=== PATIENT | male | born 1980 | race African-American/Black ===

== ENCOUNTER 2022-07-06 05:54 | Emergency (ER) | payer OTHER ==
[2022-07-06] MEDS ORDERED: SODIUM CHLORIDE 0.9% 1,000 ML IV STA ×3 (06:18→07:25)
[2022-07-06 06:38] LABS: VBG HCO3 8.7 mmol/L (23-28); VBG PCO2 32.6 mmHg (41-51); VBG PH 7.032
[2022-07-06 06:46] LABS: ALBUMIN 4.5 g/dL (3.2-5.5); ALKALINE PHOSPHATASE 54 IU/L (42-121); ALT ALANINE AMINOTRANSFERASE 33 IU/L (10-60); AST ASPARTATE AMINOTRANSFERASE 21 IU/L (10-42); BILIRUBIN,TOTAL 1.6 mg/dL (0.2-1.0); BUN - BLOOD UREA NITROGEN 25 mg/dL (6-20); CALCIUM 9.4 mg/dL (8.5-10.3); CHLORIDE 99 mmol/L (101-111); CREATININE 1.7 mg/dL (0.6-1.2); GFR - MDRD 55 (>89); LIPASE 37 U/L (22-51); MAGNESIUM 2.4 mg/dL (1.7-2.8); POTASSIUM 5.8 mmol/L (3.5-5.0); SODIUM 135 mmol/L (135-145); TOTAL PROTEIN 8.8 g/dL (6.7-8.2)
[2022-07-06 06:48] LABS: CARBON DIOXIDE - CO2 9 mmol/L (21-32); GLUCOSE 569 mg/dL (70-100)
[2022-07-06 06:49] LABS: BASOPHILS % (AUTO) 0.2 %; EOSINOPHILS # (AUTO) 0.2 10^3/uL (0.0-0.7); EOSINOPHILS % (AUTO) 2.4 %; HCT - HEMATOCRIT 53.9 % (42.0-52.0); LYMPHOCYTES # (AUTO) 2.1 10^3/uL (1.5-3.5); LYMPHOCYTES % (AUTO) 26.2 %; MEAN CORPUSCULAR HEMOGLOBIN 29.2 pg (27.0-31.0); MEAN CORPUSCULAR HGB CONC 31.5 g/dL (32.0-36.0); MEAN CORPUSCULAR VOLUME 92.5 fL (80.0-94.0); MEAN PLATELET VOLUME 10.6 fL (7.4-11.4); MONOCYTES # (AUTO) 0.6 10^3/uL (0.0-1.0); MONOCYTES % (AUTO) 7.7 %; NEUTROPHILS % (AUTO) 62.8 %; PLT - PLATELET COUNT 335 10^3/uL (130-450); RED BLOOD COUNT 5.83 10^6/uL (4.70-6.10); RED CELL DISTRIBUTION WIDTH 13.2 % (12.0-15.0)
[2022-07-06] MEDS ORDERED: INSULIN REGULAR HUMAN 100 UNIT in SODIUM CHLORIDE 0.9% 100ML 99 ML IV STA ×2 (06:51→15:39)
[2022-07-06 06:56] LABS: KETONES, SERUM (ACETEST) LARGE (NEGATIVE)
--- NOTE | 2022-07-06 07:25 | ED Physician Documentation ---
PD HPI ABD PAIN - Stated complaint Stated Complaint: MALE GI/LETHARGIC - Chief complaint Chief Complaint: Abd Pain - History obtained from History obtained from: Patient, Family - Additional information Additional information: 41-year-old gentleman with history of diabetes and hypertension. Had DKA once about 2 years ago, that was his index visit for the diagnosis of diabetes and he was hospitalized at [facility]. Starting about 3 days ago has developed some mild diffuse abdominal pain and absent bowel movements without decreased flatus. His blood sugars have been okay, generally in the mid 100s. He takes Lantus 32 units once a day, no sliding scale. Review of Systems Ten Systems: 10 systems reviewed and negative Constitutional: reports: Fatigue. denies: Fever, Chills, Myalgias GI: reports: Abdominal Pain, Nausea, Constipation. denies: Vomiting, Diarrhea, Hematemesis, Bloody / black stool PD PAST MEDICAL HISTORY - Past Medical History Past Medical History: Yes Cardiovascular: Hypertension Endocrine/Autoimmune: Type 2 diabetes - Past Surgical History Past Surgical History: No - Present Medications Home Medications: Ambulatory Orders Medication Instructions Recorded Confirmed Amlodipine Besylate [Norvasc] 10 mg PO DAILY 07/06/22 07/06/22 Aspirin EC [Ecotrin] 81 mg PO DAILY 07/06/22 07/06/22 Atorvastatin Calcium 40 mg PO DAILY 07/06/22 07/06/22 Ibuprofen [Motrin] 600 mg PO Q6H PRN 07/06/22 07/06/22 Lisinopril [Zestril] 20 mg PO DAILY 07/06/22 07/06/22 [place] 3,6/Dha/Rosamaria/Schizo/Mort 100 mg PO DAILY 07/06/22 07/06/22 [Enfamil Dha-Rosamaria 110 mg/ml Drop] methocarbamoL [Methocarbamol] 500 mg PO Q6HR PRN 07/06/22 07/06/22 - Allergies Allergies/Adverse Reactions: Allergies Allergy/AdvReac Type Severity Reaction Status Date / Time No Known Drug Allergies Allergy Verified 07/06/22 06:05 - Living Situation Living Situation: reports: With spouse/s.o. - Social History Does the pt smoke?: No Smoking Status: Never smoker Does the pt drink ETOH?: No Does the pt have substance abuse?: No - Immunizations Immunizations are current?: Yes - POLST Patient has POLST: No PD ED PE NORMAL - Vitals Vital signs reviewed: Yes (Tachycardic and tachypneic) - General General: Alert and oriented X 3, Other (Appears weak) - HEENT HEENT: Other (Dry mucous membranes) - Neck Neck: Supple, no meningeal sign, No bony TTP - Cardiac Cardiac: Other (Tachycardic but regular without murmur) - Respiratory Respiratory: No respiratory distress, Clear bilaterally - Abdomen Abdomen: Other (Mild diffuse tenderness without surgical signs, slightly hypoactive bowel sounds) - Back Back: No CVA TTP, No spinal TTP - Derm Derm: Normal color, Warm and dry - Extremities Extremities: No edema, No calf tenderness / cord - Neuro Neuro: Alert and oriented X 3, Normal speech Results - Vitals Vitals: Vital Signs - 24 hr 07/06/22 07/06/22 07/06/22 06:06 06:52 07:17 Temperature 36.6 C Heart Rate 133 H 129 H 131 H Respiratory 26 H 26 H 18 Rate Blood Pressure 146/105 H 148/103 H 142/92 H O2 Saturation 100 100 100 07/06/22 07/06/22 07/06/22 08:02 09:00 10:00 Temperature 36.7 C Heart Rate 127 H 140 H 136 H Respiratory 21 19 22 Rate Blood Pressure 120/99 H 119/48 L 136/84 H O2 Saturation 100 100 97 07/06/22 07/06/22 07/06/22 11:00 11:30 12:00 Temperature Heart Rate 139 H 131 H 139 H Respiratory 20 21 18 Rate Blood Pressure 131/80 H 131/80 H 121/76 O2 Saturation 100 100 100 07/06/22 07/06/22 07/06/22 13:00 13:48 14:27 Temperature Heart Rate 136 H 124 H 120 H Respiratory 22 22 22 Rate Blood Pressure 119/74 129/85 H O2 Saturation 100 100 99 07/06/22 07/06/22 07/06/22 15:00 15:30 16:00 Temperature Heart Rate 119 H 122 H 138 H Respiratory 20 21 17 Rate Blood Pressure 142/88 H 134/88 H O2 Saturation 100 100 100 07/06/22 07/06/22 07/06/22 17:00 18:00 18:30 Temperature 37 C Heart Rate 113 H 112 H 120 H Respiratory 17 19 20 Rate Blood Pressure 134/84 H 116/72 124/81 H O2 Saturation 100 100 100 Oxygen O2 Source Room air - EKG (time done) 0633 Rate: Rate (enter#) (126) Rhythm: NSR, LAE [place]: Normal Intervals: Normal AL QRS: Normal Ischemia: Non specific changes. No: ST elevation c/w ischemia, ST depression - Labs Labs: Laboratory Tests 07/06/22 07/06/22 07/06/22 06:22 06:22 06:22 WBC RBC Hgb Hct MCV MCH MCHC RDW Plt Count MPV Neut # (Auto) Lymph # (Auto) [place] # (Auto) Eos # (Auto) Baso # (Auto) Absolute Nucleated RBC Nucleated RBC % VBG pH 7.032 VBG pCO2 32.6 L VBG pO2 45.0 VBG HCO3 8.7 L VBG Total CO2 10.0 L VBG O2 Saturation 60.0 VBG Base Excess -22.0 L Sodium 135 Potassium 5.8 H Chloride 99 L Carbon Dioxide 9 L* Anion Gap 27.0 H BUN 25 H Creatinine 1.7 H Estimated GFR (MDRD) 55 L Glucose 569 H* POC Whole Bld Glucose Lactic Acid 3.8 H* Calcium 9.4 Phosphorus Magnesium 2.4 Total Bilirubin 1.6 H AST 21 ALT 33 Alkaline Phosphatase 54 Total Protein 8.8 H Albumin 4.5 Globulin 4.3 H Albumin/Globulin Ratio 1.0 Lipase 37 Urine Color Urine Clarity Urine pH Ur Specific [place] Urine Protein Urine Glucose (UA) Urine Ketones Urine Occult Blood Urine Nitrite Urine Bilirubin Urine Urobilinogen Ur Leukocyte Esterase Urine RBC Urine WBC Ur Squamous Epith Cells Urine Bacteria Urine Casts Ur Microscopic Review Urine Culture Comments Nasal Adenovirus (PCR) Nasal B. parapertussis DNA (PCR) Nasal Coronavir 229E PCR Nasal Coronavir HKU1 PCR Nasal Coronavir NL63 PCR Nasal Coronavir OC43 PCR Nasal Enterovir/Rhinovir PCR Nasal Influenza B PCR Nasal Influenza A PCR Nasal Parainfluen 1 PCR Nasal Parainfluen 2 PCR Nasal Parainfluen 3 PCR Nasal Parainfluen 4 PCR Nasal RSV (PCR) Nasal B.pertussis DNA PCR Nasal C.pneumoniae (PCR) Neymar Human Metapneumo PCR Nasal M.pneumoniae (PCR) Nasal SARS-CoV-2 (PCR) Serum Ketones LARGE H 07/06/22 07/06/22 07/06/22 06:30 06:42 07:10 WBC 8.0 RBC 5.83 Hgb 17.0 Hct 53.9 H MCV 92.5 MCH 29.2 MCHC 31.5 L RDW 13.2 Plt Count 335 MPV 10.6 Neut # (Auto) 5.0 Lymph # (Auto) 2.1 [place] # (Auto) 0.6 Eos # (Auto) 0.2 Baso # (Auto) 0.0 Absolute Nucleated RBC 0.00 Nucleated RBC % 0.0 VBG pH VBG pCO2 VBG pO2 VBG HCO3 VBG Total CO2 VBG O2 Saturation VBG Base Excess Sodium Potassium Chloride Carbon Dioxide Anion Gap BUN Creatinine Estimated GFR (MDRD) Glucose POC Whole Bld Glucose Lactic Acid Calcium Phosphorus Magnesium Total Bilirubin AST ALT Alkaline Phosphatase Total Protein Albumin Globulin Albumin/Globulin Ratio Lipase Urine Color LT. YELLOW Urine Clarity CLEAR Urine pH 6.0 Ur Specific [place] >=1.030 H Urine Protein 30 H Urine Glucose (UA) 500 H Urine Ketones >=80 H Urine Occult Blood SMALL H Urine Nitrite NEGATIVE Urine Bilirubin NEGATIVE Urine Urobilinogen 0.2 (NORMAL) Ur Leukocyte Esterase NEGATIVE Urine RBC 0-5 Urine WBC 0-3 Ur Squamous Epith Cells RARE Squamous Urine Bacteria Few Urine Casts 11-25Course Granular Ur Microscopic Review INDICATED Urine Culture Comments NOT INDICATED Nasal Adenovirus (PCR) NOT DETECTED Nasal B. parapertussis DNA (PCR) NOT DETECTED Nasal Coronavir 229E PCR NOT DETECTED Nasal Coronavir HKU1 PCR NOT DETECTED Nasal Coronavir NL63 PCR NOT DETECTED Nasal Coronavir OC43 PCR NOT DETECTED Nasal Enterovir/Rhinovir PCR NOT DETECTED Nasal Influenza B PCR NOT DETECTED Nasal Influenza A PCR NOT DETECTED Nasal Parainfluen 1 PCR NOT DETECTED Nasal Parainfluen 2 PCR NOT DETECTED Nasal Parainfluen 3 PCR NOT DETECTED Nasal Parainfluen 4 PCR NOT DETECTED Nasal RSV (PCR) NOT DETECTED Nasal B.pertussis DNA PCR NOT DETECTED Nasal C.pneumoniae (PCR) NOT DETECTED Neymar Human Metapneumo PCR NOT DETECTED Nasal M.pneumoniae (PCR) NOT DETECTED Nasal SARS-CoV-2 (PCR) DETECTED A Serum Ketones 07/06/22 07/06/22 07/06/22 08:35 08:35 09:50 WBC RBC Hgb Hct MCV MCH MCHC RDW Plt Count MPV Neut # (Auto) Lymph # (Auto) [place] # (Auto) Eos # (Auto) Baso # (Auto) Absolute Nucleated RBC Nucleated RBC % VBG pH 6.988 VBG pCO2 26.7 L VBG pO2 38.0 VBG HCO3 6.4 L VBG Total CO2 7.0 L VBG O2 Saturation 46.0 L VBG Base Excess -25.0 L Sodium 139 Potassium 4.3 Chloride 105 Carbon Dioxide 7 L* Anion Gap 27.0 H BUN 25 H Creatinine 1.7 H Estimated GFR (MDRD) 55 L Glucose 514 H* 484 H POC Whole Bld Glucose Lactic Acid Calcium 8.7 Phosphorus Magnesium 2.2 Total Bilirubin AST ALT Alkaline Phosphatase Total Protein Albumin Globulin Albumin/Globulin Ratio Lipase Urine Color Urine Clarity Urine pH Ur Specific [place] Urine Protein Urine Glucose (UA) Urine Ketones Urine Occult Blood Urine Nitrite Urine Bilirubin Urine Urobilinogen Ur Leukocyte Esterase Urine RBC Urine WBC Ur Squamous Epith Cells Urine Bacteria Urine Casts Ur Microscopic Review Urine Culture Comments Nasal Adenovirus (PCR) Nasal B. parapertussis DNA (PCR) Nasal Coronavir 229E PCR Nasal Coronavir HKU1 PCR Nasal Coronavir NL63 PCR Nasal Coronavir OC43 PCR Nasal Enterovir/Rhinovir PCR Nasal Influenza B PCR Nasal Influenza A PCR Nasal Parainfluen 1 PCR Nasal Parainfluen 2 PCR Nasal Parainfluen 3 PCR Nasal Parainfluen 4 PCR Nasal RSV (PCR) Nasal B.pertussis DNA PCR Nasal C.pneumoniae (PCR) Neymar Human Metapneumo PCR Nasal M.pneumoniae (PCR) Nasal SARS-CoV-2 (PCR) Serum Ketones 07/06/22 07/06/22 07/06/22 11:00 11:30 13:00 WBC RBC Hgb Hct MCV MCH MCHC RDW Plt Count MPV Neut # (Auto) Lymph # (Auto) [place] # (Auto) Eos # (Auto) Baso # (Auto) Absolute Nucleated RBC Nucleated RBC % VBG pH VBG pCO2 VBG pO2 VBG HCO3 VBG Total CO2 VBG O2 Saturation VBG Base Excess Sodium 140 Potassium 5.3 H Chloride 110 Carbon Dioxide 7 L* Anion Gap 23.0 H BUN 26 H Creatinine 1.5 H Estimated GFR (MDRD) 63 L Glucose 391 H 327 H 243 H POC Whole Bld Glucose Lactic Acid Calcium 8.2 L Phosphorus Magnesium 2.4 Total Bilirubin AST ALT Alkaline Phosphatase Total Protein Albumin Globulin Albumin/Globulin Ratio Lipase Urine Color Urine Clarity Urine pH Ur Specific [place] Urine Protein Urine Glucose (UA) Urine Ketones Urine Occult Blood Urine Nitrite Urine Bilirubin Urine Urobilinogen Ur Leukocyte Esterase Urine RBC Urine WBC Ur Squamous Epith Cells Urine Bacteria Urine Casts Ur Microscopic Review Urine Culture Comments Nasal Adenovirus (PCR) Nasal B. parapertussis DNA (PCR) Nasal Coronavir 229E PCR Nasal Coronavir HKU1 PCR Nasal Coronavir NL63 PCR Nasal Coronavir OC43 PCR Nasal Enterovir/Rhinovir PCR Nasal Influenza B PCR Nasal Influenza A PCR Nasal Parainfluen 1 PCR Nasal Parainfluen 2 PCR Nasal Parainfluen 3 PCR Nasal Parainfluen 4 PCR Nasal RSV (PCR) Nasal B.pertussis DNA PCR Nasal C.pneumoniae (PCR) Neymar Human Metapneumo PCR Nasal M.pneumoniae (PCR) Nasal SARS-CoV-2 (PCR) Serum Ketones 07/06/22 07/06/22 16:06 17:10 WBC RBC Hgb Hct MCV MCH MCHC RDW Plt Count MPV Neut # (Auto) Lymph # (Auto) [place] # (Auto) Eos # (Auto) Baso # (Auto) Absolute Nucleated RBC Nucleated RBC % VBG pH VBG pCO2 VBG pO2 VBG HCO3 VBG Total CO2 VBG O2 Saturation VBG Base Excess Sodium 142 Potassium 4.3 Chloride 116 H Carbon Dioxide 14 L Anion Gap 12.0 BUN 20 Creatinine 1.0 Estimated GFR (MDRD) 101 Glucose 232 H POC Whole Bld Glucose 165 H Lactic Acid Calcium 8.2 L Phosphorus 1.1 L Magnesium 2.0 Total Bilirubin AST ALT Alkaline Phosphatase Total Protein Albumin Globulin Albumin/Globulin Ratio Lipase Urine Color Urine Clarity Urine pH Ur Specific [place] Urine Protein Urine Glucose (UA) Urine Ketones Urine Occult Blood Urine Nitrite Urine Bilirubin Urine Urobilinogen Ur Leukocyte Esterase Urine RBC Urine WBC Ur Squamous Epith Cells Urine Bacteria Urine Casts Ur Microscopic Review Urine Culture Comments Nasal Adenovirus (PCR) Nasal B. parapertussis DNA (PCR) Nasal Coronavir 229E PCR Nasal Coronavir HKU1 PCR Nasal Coronavir NL63 PCR Nasal Coronavir OC43 PCR Nasal Enterovir/Rhinovir PCR Nasal Influenza B PCR Nasal Influenza A PCR Nasal Parainfluen 1 PCR Nasal Parainfluen 2 PCR Nasal Parainfluen 3 PCR Nasal Parainfluen 4 PCR Nasal RSV (PCR) Nasal B.pertussis DNA PCR Nasal C.pneumoniae (PCR) Neymar Human Metapneumo PCR Nasal M.pneumoniae (PCR) Nasal SARS-CoV-2 (PCR) Serum Ketones - Rads (name of study) CT of the abdomen and pelvis without contrast and chest x-ray are generally unremarkable with exception of a fat-containing umbilical hernia Radiology: Final report received, EMP read indepedently PD MEDICAL DECISION MAKING - ED course ED course: 41-year-old gentleman presents with DKA and lethargy. Found to be COVID- positive which is likely the inciting event for causing the DKA as there is nothing else in the history physical or work-up to suggest another cause for his decompensation. After discussion with the pharmacist we are starting PAXLOVID, his GFR would usually mandate renal dosing but we expect his GFR to improve with fluid resuscitation. He is started on insulin drip and we will monitor his electrolytes and gap closely with serial labs. 1804: The gap is closed, but he still has a significant acidosis. His phosphorus is also quite low. Chloride is creeping up, will change his fluids over to D5 half-normal saline +20 of K and give him a dose of IV sodium phosphate. Given the consistent acidosis, will continue the insulin drip. 1854: Care to overnight emergency physician at 7 PM shift change. - Critical Care Time(min): 55 Time Includes: Direct patient care, Review records, Reassess patient, Document care, Coordinate care, Family consult for tx dec Data interpretation: Labs, Pulse ox, ABG Procedures excluded from critical care time: EKG Departure - Departure Disposition: 66 [facility] DC/Xfer Clinical Impression: COVID-19 DKA (diabetic ketoacidosis) Qualifiers: Diabetes mellitus complication detail: without coma
[2022-07-06 07:34] LABS: CORONAVIRUS 229E-RESP PCR NOT DETECTED; CORONAVIRUS HKU1-RESP PCR NOT DETECTED; CORONAVIRUS NL63-RESP PCR NOT DETECTED; CORONAVIRUS OC43-RESP PCR NOT DETECTED
[2022-07-06 07:36] LABS: B. PARAPERTUSSIS- RESP PCR PAN NOT DETECTED; B. PERTUSSIS- RESP PCR PANEL NOT DETECTED; C. PNEUMONIAE- RESP PCR PANEL NOT DETECTED; HUMAN METAPNEUMOVIRUS NOT DETECTED; INFLUENZA A- RESP PCR PANEL NOT DETECTED; INFLUENZA B - RESP PCR PANEL NOT DETECTED; M. PNEUMONIAE- RESP PCR PANEL NOT DETECTED; PARAINFLUENZA VIRUS 1 NOT DETECTED; PARAINFLUENZA VIRUS 2 NOT DETECTED; PARAINFLUENZA VIRUS 3 NOT DETECTED; PARAINFLUENZA VIRUS 4 NOT DETECTED; RHINOVIRUS/ENTEROVIRUS NOT DETECTED; RSV- RESP PCR PANEL NOT DETECTED; SARS-CoV-2 -RESP PCR PANEL DETECTED
--- NOTE | 2022-07-06 07:55 | XRAY Report ---
PROCEDURE: Chest 1 View X-Ray INDICATIONS: weakness TECHNIQUE: One view of the chest was acquired. COMPARISON: Correlation made with the accompanying, 09/06/2021. FINDINGS: Surgical changes and devices: None. Lungs and pleura: No pleural effusions or pneumothorax. Lungs are clear. Mediastinum: Mediastinal contours appear normal. Heart size is normal. Bones and chest wall: No suspicious bony lesions. Overlying soft tissues appear unremarkable. IMPRESSION: Portable chest within normal limits for age. No focal infiltrates are seen. Reviewed by: Sidney Darling MD on 07/06/2022 6:54 AM [facility] Approved by: Sidney Darling MD on 07/06/2022 6:54 AM [facility] Station ID: [id number]
--- NOTE | 2022-07-06 07:57 | CT Report ---
PROCEDURE: ABDOMEN/PELVIS WO INDICATIONS: abd pain TECHNIQUE: Noncontrast 5 mm thick sections acquired from the diaphragms to the symphysis. 5 mm coronal and sagi ttal reformats were then performed. For radiation dose reduction, the following was used: automated exposure control, adjustment of mA and/or kV according to patient size. COMPARISON: Correlation is made with the accompanying chest radiograph, 07/06/2022. FINDINGS: Image quality: Motion artifact is noted. Limited by lack of contrast. ABDOMEN: Lung bases: Lung bases are clear. Heart size is normal. Solid organs: Liver and spleen are normal in size. Gallbladder wall does not appear thickened. P ancreas is normal in contours. No adrenal nodules. Kidneys are normal in size, without hydronephros is or nephrolithiasis. Peritoneum and bowel: Unenhanced bowel loops demonstrate normal wall thickness and caliber. No free fluid or air. There is a normal appendix seen, as on series 3 images 44 through 51. No focal right lower quadrant inflammatory changes are seen. Nodes and vessels: No retroperitoneal or mesenteric adenopathy by size criteria. Aorta and inferior vena cava are normal in caliber. Miscellaneous: There is a trace fat-containing periumbilical hernia. PELVIS: Genitourinary: Bladder wall thickness is normal. Miscellaneous: No inguinal hernias or adenopathy. Bones: No suspicious bony lesions. No vertebral body compression fractures. IMPRESSION: No imaging explanation is found for the patient's presenting symptoms. Normal appendix. No dilated loops of bowel are seen. Negative for stones or hydronephrosis. Additional findings: Trace fat-containing periumbilical hernia Reviewed by: Sidney Darling MD on 07/06/2022 6:56 AM [facility] Approved by: Sidney Darling MD on 07/06/2022 6:56 AM [facility] Station ID: [id number]
[2022-07-06 08:09] LABS: BILIRUBIN,URINE NEGATIVE (NEGATIVE); GLUCOSE, URINE (UA) 500 mg/dL (NEGATIVE); KETONES,URINE (UA) >=80 mg/dL (NEGATIVE); LEUKOCYTE ESTERASE, URINE NEGATIVE (NEGATIVE); NITRITE,URINE NEGATIVE (NEGATIVE); OCCULT BLOOD,URINE SMALL (NEGATIVE); PROTEIN,URINE 30 mg/dL (NEGATIVE); UROBILINOGEN,URINE 0.2 (NORMAL) E.U./dL (NORMAL)
[2022-07-06] MEDS ORDERED: NIRMATRELVIR/RITONAVIR PREPACK PO STA (08:12)
[2022-07-06 08:19] LABS: CLARITY,URINE CLEAR (CLEAR)
[2022-07-06 08:42] LABS: BACTERIA,URINE Few /HPF (None Seen); CASTS, URINE 11-25Course Granular /LPF; RBC,URINE 0-5 /HPF (0-5); SQUAMOUS EPITHELIAL CELL,UR RARE Squamous (<= Few); WBC,URINE 0-3 /HPF (0-3)
[2022-07-06 08:46] LABS: VBG PH 6.988
[2022-07-06 08:47] LABS: VBG HCO3 6.4 mmol/L (23-28); VBG PCO2 26.7 mmHg (41-51)
[2022-07-06 09:01] LABS: CALCIUM 8.7 mg/dL (8.5-10.3); CREATININE 1.7 mg/dL (0.6-1.2); MAGNESIUM 2.2 mg/dL (1.7-2.8); POTASSIUM 4.3 mmol/L (3.5-5.0)
[2022-07-06 11:48] LABS: CALCIUM 8.2 mg/dL (8.5-10.3); CREATININE 1.5 mg/dL (0.6-1.2); MAGNESIUM 2.4 mg/dL (1.7-2.8); POTASSIUM 5.3 mmol/L (3.5-5.0)
[2022-07-06] MEDS ORDERED: CALCIUM CARBONATE CHEW 500 MG TABLET PO STA (12:05)
[2022-07-06] MEDS ORDERED: DEXTROSE 5%-0.9% NACL 1,000 ML IV STA (14:20)
[2022-07-06] MEDS ORDERED: ONDANSETRON 4 MG/2 ML VIAL IVP STA (15:28)
[2022-07-06] MEDS ORDERED: ONDANSETRON 4 MG/2 ML VIAL IVP PRN (16:48)
[2022-07-06] MEDS ORDERED: ACETAMINOPHEN 500 MG TABLET PO PRN (16:48)
[2022-07-06 17:31] LABS: CALCIUM 8.2 mg/dL (8.5-10.3); PHOSPHORUS 1.1 mg/dL (2.5-4.6); POTASSIUM 4.3 mmol/L (3.5-5.0)
[2022-07-06] MEDS ORDERED: D5.45NS W/20 MEQ KCL 1,000 ML IV STA (18:04)
[2022-07-06] MEDS ORDERED: SODIUM PHOSPHATE 21 MMOL in SODIUM CHLORIDE 0.9% 250 ML IV ONE (18:04)
[2022-07-06] MEDS ORDERED: SODIUM PHOSPHATE 15 MMOL in SODIUM CHLORIDE 0.9% 250 ML IV ONE (18:55)
[2022-07-06] MEDS: NEUTRA-PHOS 250 MG TABLET PO SCH (18:59)
[2022-07-06] MEDS ORDERED: NIRMATRELVIR/RITONAVIR (RENAL) PREPACK PO ONE (21:39)
[2022-07-07] MEDS ORDERED: PANTOPRAZOLE 40 MG TABLET PO SCH (07:00)
[2022-07-07] MEDS ORDERED: BISACODYL 10 MG SUPP PR STA (08:00)
[2022-07-07] MEDS ORDERED: KETOROLAC 15 MG/ML VIAL IVP STA ×2 (08:00→17:18)
[2022-07-07] MEDS ORDERED: HYDROmorphone 0.5 MG/0.5 ML SYRINGE IVP STA ×2 (08:00→15:25)
[2022-07-07] MEDS ORDERED: LACTULOSE 10 GM /15 ML UDC PO STA (08:01)
--- NOTE | 2022-07-07 08:05 | ED Physician Documentation ---
ED Addendum - Addendum Addendum: 07/07/22 08:02 The patient is awake alert and conversant. He is complaining of diffuse abdominal pain somewhat more to the right. He has been having belly pain for 4- 1/2 days cramping intermittent with decreased bowel movements but no vomiting. CT scan and labs were done yesterday without any acute abnormality found. Consideration would be constipation perhaps or form of colitis. Exam today is showing normal respirations and normal respiratory effort. Awake and conversant. Abdomen is generally tender slightly more right sided than left but both sides. Bowel sounds are present and hypoactive. Minimal percussion tenderness. Periumbilical area without any lumps or focal tenderness. Morning labs are pending as lab was having difficulty with blood draw. Nursing staff is working on a new IV second IV site and drawing blood themselves. Assessment generalized abdominal pain 2. Diabetes with DKA 3. Decreased bowel movements The patient plan: The patient currently is on low-dose insulin drip as well as the dextrose infusion. Morning labs are pending and we will see if we can adjust at that and perhaps be off of the insulin drip. We will get some medication for his abdominal pain currently but also try stool softener and laxative suppository. Still pending bed availability in the hospital. If his labs are improving, he may be able to be MedSurg rather than ICU with the crux being continued insulin drip.
[2022-07-07 08:42] LABS: BASOPHILS % (AUTO) 0.2 %; EOSINOPHILS % (AUTO) 0.2 %; HGB - HEMOGLOBIN 14.8 g/dL (14.0-18.0); LYMPHOCYTES % (AUTO) 16.1 %; MEAN CORPUSCULAR HEMOGLOBIN 29.4 pg (27.0-31.0); MEAN CORPUSCULAR HGB CONC 34.4 g/dL (32.0-36.0); MEAN CORPUSCULAR VOLUME 85.5 fL (80.0-94.0); MEAN PLATELET VOLUME 10.1 fL (7.4-11.4); MONOCYTES # (AUTO) 0.5 10^3/uL (0.0-1.0); NEUTROPHILS # (AUTO) 4.7 10^3/uL (1.5-6.6); NEUTROPHILS % (AUTO) 75.3 %; PLT - PLATELET COUNT 211 10^3/uL (130-450); RED BLOOD COUNT 5.03 10^6/uL (4.70-6.10); RED CELL DISTRIBUTION WIDTH 13.3 % (12.0-15.0); WHITE BLOOD COUNT 6.3 x10^3/uL (4.8-10.8)
[2022-07-07 08:44] LABS: VBG PCO2 34.2 mmHg (41-51); VBG PH 7.348
[2022-07-07 08:45] LABS: VBG BASE EXCESS -6.2 mmol/L (-2 - +2); VBG HCO3 18.4 mmol/L (23-28); VBG OXYGEN SATURATION 94.5 % (60-80); VBG PO2 62.9 mmHg (25-47); VBG TOTAL CO2 19.4 mmol/L (24-29)
[2022-07-07 08:51] LABS: KETONES, SERUM (ACETEST) SMALL (NEGATIVE)
[2022-07-07] MEDS: NEUTRA-PHOS 250 MG TABLET PO SCH ×3 (08:54→17:35)
[2022-07-07 08:57] LABS: BUN - BLOOD UREA NITROGEN 18 mg/dL (6-20); CALCIUM 8.5 mg/dL (8.5-10.3); CARBON DIOXIDE - CO2 18 mmol/L (21-32); CHLORIDE 113 mmol/L (101-111); CREATININE 0.9 mg/dL (0.6-1.2); GFR - MDRD 114 (>89); GLUCOSE 158 mg/dL (70-100); MAGNESIUM 2.4 mg/dL (1.7-2.8); PHOSPHORUS 1.4 mg/dL (2.5-4.6); POTASSIUM 3.5 mmol/L (3.5-5.0); SODIUM 145 mmol/L (135-145)
[2022-07-07] MEDS ORDERED: ENOXAPARIN 40 MG/0.4 ML SYRINGE SUBQ SCH (09:00)
[2022-07-07] MEDS ORDERED: INSULIN LISPRO 300 UNIT/3 ML PEN SUBQ STA ×2 (09:49→14:12)
[2022-07-07] MEDS ORDERED: INSULIN GLARGINE-YFGN 300 UNIT/3 ML PEN SUBQ STA (11:59)
--- NOTE | 2022-07-07 17:14 | ED Physician Documentation ---
ED Addendum - Addendum Addendum: 07/07/22 17:13 He continues to board pending admission, he is no longer in DKA, his blood sugars have been up and down a bit but generally in an acceptable range for discharge. He is feeling much better, main complaints include constipation and abdominal cramps. He is agreeable to discharge, he has been on a mealtime insulin in the past, most recently though was just on his nighttime Lantus. We will start mealtime insulin assuming his blood sugars will continue to be high while he is medically ill with the COVID. Disposition: Discharged home Condition: Stable Diagnosis: 1. DKA resolved 2. Constipation 3. Abdominal pain 4. COVID-19
[2022-07-07 17:27] VITALS: BP 131/95
== END 2022-07-07 17:50 | disposition home or self-care (01) ==
LOC: ED 05:54
DX: U07.1 COVID-19 (principal); E11.10 Type 2 diabetes mellitus with ketoacidosis without coma
CPT/HCPCS: 36415; 71045; 74176; 80048; 80053; 81001; 82009; 82803; 82947; 83605; 83690; 83735; 84100; 85025; 87633; 93005; 96361; 96365; 96366; 96368; 96372; 96375; 96376; 99285; 99291; A9270; J1170; J1650; J1815; J3490; 81003; 87086

== ENCOUNTER 2023-08-18 07:41 | Outpatient (CLI) | payer OTHER | END 2023-08-18 07:42 | disposition critical access hospital (66) | LOC: EMS 07:41 | DX: I46.9 Cardiac arrest, cause unspecified (principal) | CPT/HCPCS: A0425; A0428 ==

== ENCOUNTER 2023-08-18 07:54 | Emergency (ER) | payer OTHER ==
--- NOTE | 2023-08-18 08:56 | ED Physician Documentation ---
PD HPI CPR - Stated complaint Stated Complaint: CPR - Chief complaint Chief Complaint: Cardiac - History obtained from History obtained from: Family, EMS - Additional information Additional information: Patient is a 42-year-old male with a history of diabetes presenting in cardiac arrest. Per EMS found him unresponsive a little before 7:00 this morning and pulled him off the toilet and started CPR. EMS found to be in asystole. He has been given approximately 6 rounds of epinephrine, 1 amp of bicarb and 1 amp of calcium. His blood sugars in the 200s. He was intubated in the field by EMS without use of medications. He has been in asystole or PEA for the duration of the code. Per his he had been complaining of a cough for the past 3 days. She reports hearing him breathe a little funny this morning but he did walk up the stairs around 630 to go to the bathroom. Review of Systems Unable to obtain: Unresponsive PD PAST MEDICAL HISTORY - Past Medical History Cardiovascular: Hypertension Endocrine/Autoimmune: Type 2 diabetes - Past Surgical History Past Surgical History: No - Present Medications Home Medications: Ambulatory Orders Medication Instructions Recorded Confirmed Amlodipine Besylate [Norvasc] 10 mg PO DAILY 07/06/22 07/06/22 Aspirin EC [Ecotrin] 81 mg PO DAILY 07/06/22 07/06/22 Atorvastatin Calcium 40 mg PO DAILY 07/06/22 07/06/22 Ibuprofen [Motrin] 600 mg PO Q6H PRN 07/06/22 07/06/22 Lisinopril [Zestril] 20 mg PO DAILY 07/06/22 07/06/22 [place] 3,6/Dha/Rosamaria/Schizo/Mort 100 mg PO DAILY 07/06/22 07/06/22 [Enfamil Dha-Rosamaria 110 mg/ml Drop] methocarbamoL [Methocarbamol] 500 mg PO Q6HR PRN 07/06/22 07/06/22 HYDROcod/ACETAM 5/325 [Rail[place] 5/325] 1 - 2 tab PO Q6H PRN #15 tablet 07/07/22 Insulin Aspart [Insulin Aspart 10 unit SQ AC #2 each 07/07/22 Flexpen] Insulin Glargine [Lantus Solostar] 32 unit SQ HS 07/07/22 07/07/22 Lactulose 10 gm PO QID PRN #150 ml 07/07/22 Ondansetron Odt [Zofran] 4 mg TL Q6H PRN #10 tablet 07/07/22 - Allergies Allergies/Adverse Reactions: Allergies Allergy/AdvReac Type Severity Reaction Status Date / Time No Known Drug Allergies Allergy Verified 07/06/22 06:05 - Social History Does the pt smoke?: No Smoking Status: Never smoker Does the pt drink ETOH?: No Does the pt have substance abuse?: No - Immunizations Immunizations are current?: Yes - POLST Patient has POLST: No PD ED PE NORMAL - General General: Well developed/nourished, Other (Unresponsive). No: No acute distress - HEENT HEENT: Other (Abrasion to right parietal scalp; Pupils are fixed and dilated). No: Atraumatic - Neck Neck: Other (Cervical collar in place) - Cardiac Cardiac: Other (Palpable femoral pulses only with compressions) - Respiratory Respiratory: Other (ET tube in place, no spontaneous respirations; Breath sounds auscultated bilaterally with BVM) - Abdomen Abdomen: Soft, Non distended - Neuro Neuro: Other (Unresponsive). No: Alert and oriented X 3 Results - Vitals Vitals: Oxygen O2 Source Room air PD Medical Decision Making - ED course ED course: Patient arrived in cardiac arrest. Prior to arrival he had been intubated, received numerous rounds of epinephrine, 1 amp of bicarb and 1 amp of calcium with no return of spontaneous circulation. He had been in asystole and PEA in the field. Upon arrival ACLS protocols were continued. He remained in PEA. He received an additional round of epinephrine and bicarb.Blood sugar was reported in the 200s. Lung sounds heard bilaterally. No cardiac activity seen on bedside ultrasound. Code duration has been an hour with no return of spontaneous circulation's despite attempts from EMS as well as ED staff. Time of called at 803. Patient's next of kin, his , construction equipment mechanic helper and construction equipment mechanic helper's along with patient's brother, Presented to the emergency department and were notified Regarding the patient's . Condolences expressed. 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 Departure - Departure Disposition: 20 Clinical Impression: Cardiac arrest, History of insulin dependent diabetes mellitus, Scalp abrasion Condition: Critical Forms: PCP List Discharge Date/Time: 08/18/23 11:00
== END 2023-08-18 11:00 | disposition home or self-care (01) ==
LOC: EDUNIT# → ED 07:54
DX: I46.9 Cardiac arrest, cause unspecified (principal); S00.01XA Abrasion of scalp, initial encounter; X58.XXXA Exposure to other specified factors, initial encounter; E11.9 Type 2 diabetes mellitus without complications; I10 Essential (primary) hypertension; Z79.4 Long term (current) use of insulin; Z79.82 Long term (current) use of aspirin; Z79.899 Other long term (current) drug therapy
CPT/HCPCS: 99285